=== PATIENT | female | born 1990 | race Caucasian/White ===

== ENCOUNTER 2018-03-10 14:09 | Emergency (ER) | payer MEDICAID ==
[~2018-03-10] VITALS: Ht 170.2 cm; Wt 129.0 kg
[2018-03-10] MEDS ORDERED: diphenhydrAMINE 50 mg/ml inj IV ONE (16:00)
[2018-03-10] MEDS ORDERED: metoclopramide 5 mg/ml inj IV ONE (16:00)
[2018-03-10] MEDS ORDERED: ketorolac trometh. 30mg/ml inj. IV ONE (16:00)
[2018-03-10] MEDS ORDERED: normal saline 1000ML IV soln IVB ONE (16:00)
[2018-03-10] MEDS ORDERED: BUTA-281 PO (17:40)
[2018-03-10 18:05] VITALS: BP 156/67
== END 2018-03-10 18:08 | disposition home or self-care (01) ==
LOC: ER 14:09
DX: G43.909 Migraine, unspecified, not intractable, without status migrainosus (principal); Z79.899 Other long term (current) drug therapy
CPT/HCPCS: 96361; 96374; 96375; 99283; J1200; J1885; J2765; J7030

== ENCOUNTER 2018-08-26 04:45 | Emergency (ER) | payer MEDICAID ==
[~2018-08-26] VITALS: Ht 170.2 cm; Wt 124.5 kg
[~2018-08-26 04:45] MED LIST: BUTA-281 PO
[2018-08-26] MEDS ORDERED: proCHLORperazine 10 MG/2 ml inj IV ONE (05:15)
[2018-08-26] MEDS ORDERED: BUTA-281 PO (05:15)
[2018-08-26] MEDS ORDERED: morphine 2 MG/ML inj. syringe IV PRN (05:15)
[2018-08-26] MEDS ORDERED: diphenhydrAMINE 50 mg/ml inj IV ONE (05:15)
[2018-08-26] MEDS ORDERED: normal saline 1000ML IV soln IVB ONE (05:15)
[2018-08-26] MEDS ORDERED: METO-292 PO (05:15)
[2018-08-26] MEDS ORDERED: ketorolac tromethamine 15mg/ml inj. IV ONE (05:15)
[2018-08-26] MEDS ORDERED: SUMAtriptan succ. 6 MG/0.5ml vial SQ ONE (05:15)
[2018-08-26 06:41] VITALS: BP 140/106
== END 2018-08-26 06:42 | disposition home or self-care (01) ==
LOC: ER 04:46
DX: G43.909 Migraine, unspecified, not intractable, without status migrainosus (principal); R20.2 Paresthesia of skin; H53.149 Visual discomfort, unspecified; I10 Essential (primary) hypertension; F12.90 Cannabis use, unspecified, uncomplicated; Z79.899 Other long term (current) drug therapy
CPT/HCPCS: 96372; 96374; 96375; 99283; J0780; J1200; J1885; J2270; J7030; J3030

== ENCOUNTER 2020-03-04 17:57 | Emergency (ER) | payer MEDICAID ==
[~2020-03-04] VITALS: Ht 170.2 cm; Wt 129.6 kg
[~2020-03-04 17:57] MED LIST changes: +METO-292 PO
[2020-03-04 18:53] LABS: BASOPHILS # (AUTO) 0.1 X10'3 (0-0.2); BASOPHILS % (AUTO) 1.3 % (0-1); EOSINOPHILS % (AUTO) 0.2 % (0-6); HEMATOCRIT 39.9 % (35.0-45.0); HEMOGLOBIN 13.4 g/dl (12.0-16.0); LYMPHOCYTES % (AUTO) 37.9 % (21-51); MEAN CORPUSCULAR HEMOGLOBIN 27.9 PG (27.0-31.0); MEAN CORPUSCULAR HGB CONC 33.5 g/dL (33.0-36.5); MEAN CORPUSCULAR VOLUME 83.2 FL (78-98); MEAN PLATELET VOLUME 7.7 FL (7.4-10.4); MONOCYTES # (AUTO) 0.7 X10'3 (0-0.9); MONOCYTES % (AUTO) 6.3 % (2-12); NEUTROPHILS # (AUTO) 5.8 X10'3 (1.8-7.7); NEUTROPHILS % (AUTO) 54.3 % (42-75); PLATELET COUNT 448 X10'3 (140-440); RED CELL DISTRIBUTION WIDTH 15.4 % (11.5-14.5); WHITE BLOOD COUNT 10.6 X10'3 (4.5-11.0)
[2020-03-04 19:11] LABS: ALANINE AMINOTRANSFERASE 26 U/L (12-78); ALBUMIN/GLOBULIN RATIO 0.9 (1.1-1.5); ALKALINE PHOSPHATASE 67 IU/L (46-116); ANION GAP 11 (8-16); ASPARTATE AMINO TRANSFERASE 14 U/L (10-37); BILIRUBIN,TOTAL 0.2 MG/DL (0.1-1.0); BLOOD UREA NITROGEN 5 MG/DL (7-18); BUN/CREATININE RATIO 6.4 (6.6-38.0); CALCIUM 9.4 MG/DL (8.5-10.1); CHLORIDE 103 MMOL/L (99-107); CREATININE 0.78 MG/DL (0.40-0.90); GLUCOSE 106 MG/DL (70-104); POTASSIUM 4.1 MMOL/L (3.5-5.1); SODIUM 138 MMOL/L (135-145); TOTAL CARBON DIOXIDE 23.7 MMOL/L (24-32); TOTAL PROTEIN 8.5 G/DL (6.4-8.2); eGFR 87 ML/MIN
--- NOTE | 2020-03-04 22:07 | NUR ---
PT AWARE THAT URINE SAMPLE IS NEEDED, STATES DOES NOT HAVE TO PEE AND REFUSING TO DRINK WATER.
[2020-03-04] MEDS ORDERED: normal saline 1000ML IV soln IVB ONE (22:25)
--- NOTE | 2020-03-04 22:31 | NUR ---
PT REFUSING IV AND FLUIDS. PT ABLE TO EAT AND DRINK WITH NO DIFFICULTIES. GOOD PA AWARE
--- NOTE | 2020-03-04 22:41 | NUR ---
PT MOTHER DEMANDED PT BE DISCHARGED SINCE "ALL WERE WAITING ON IS THE URINE TEST AND THAT'S NOT GOING TO TELL US ANYTHING GOING ON AND WE HAVE BEEN WAITING FOR 4 HOURS. 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 NO MORE TESTS EITHER. I NEED A COPY OF THE RESULTS". EXPLAINED THAT I WILL SHARE CONCERNS TO DOCTOR, THAT THERE IS NO WAY WE CAN DO A PORTABLE EKG, AND REFERRRED HER TO [facility] ON SATURDAY FOR A COPY OF RESULTS.
[2020-03-04 22:48] LABS: URINE HCG NEGATIVE (NEG)
[2020-03-04 22:54] LABS: CLARITY,URINE CLEAR (Clear); COLOR,URINE YELLOW (Yellow); GLUCOSE, URINE NEGATIVE (Neg); KETONES,URINE NEGATIVE (Neg); LEUKOCYTE ESTERASE ,URINE SMALL (Neg); NITRITES, URINE NEGATIVE (Neg); OCCULT BLOOD,URINE NEGATIVE (Neg); PH,URINE 6.5 (4.8-8.0); PROTEIN,URINE NEGATIVE (Neg); UROBILINOGEN,URINE 0.2 E.U/dL (0.2-1.0)
--- NOTE | 2020-03-04 23:02 | NUR ---
PT DEMANDING TO LEAVE DESPITE URINE TEST RESULTS. GOOD PA MADE AWARE AND PRINTING DISCHARGE PAPERS
[2020-03-04 23:08] VITALS: BP 121/82
[2020-03-04 23:30] LABS: UA COLLECTION TYPE CLN CATCH MIDSTREAM
[2020-03-04 23:41] LABS: WBC,URINE 0-4 /HPF (0-4)
[2020-03-04 23:42] LABS: BACTERIA,URINE 1+ /HPF (Neg); MUCUS STRANDS FEW /LPF (Neg); RBC,URINE NONE SEEN /HPF (0-2); SQUAMOUS EPITHELIAL CELL,UR MODERATE /LPF (FEW)
== END 2020-03-04 23:10 | disposition home or self-care (01) ==
LOC: ER 17:58
DX: R42 Dizziness and giddiness (principal); R53.1 Weakness; R00.2 Palpitations; F31.9 Bipolar disorder, unspecified; F12.10 Cannabis abuse, uncomplicated; Z79.899 Other long term (current) drug therapy
CPT/HCPCS: 36415; 71045; 80053; 81001; 81025; 83880; 84484; 85025; 87088; 93005; 99285

== ENCOUNTER 2020-09-07 11:21 | Emergency (ER) | payer MEDICAID ==
[~2020-09-07] VITALS: Ht 170.2 cm; Wt 118.0 kg
[2020-09-07 11:25] VITALS: BP 155/110
--- NOTE | 2020-09-07 11:58 | NUR ---
STATES THE DENIST CALLED AND IS ABLE TO SEE HER AT THE DENIST OFFICE.
== END 2020-09-07 12:25 | disposition left against medical advice (07) ==
LOC: ER 11:22
DX: K08.89 Other specified disorders of teeth and supporting structures (principal); Z53.21 Procedure and treatment not carried out due to patient leaving prior to being seen by health care provider